=== PATIENT | male | born 1950 | race Caucasian/White ===

== ENCOUNTER 2018-02-04 10:17 | Emergency (ER) | payer OTHER ==
[~2018-02-04] VITALS: Ht 597.6 cm; Wt 84.0 kg
[2018-02-04 10:21] VITALS: BP 145/84
== END 2018-02-04 11:52 | disposition home or self-care (01) ==
LOC: ER 10:17
DX: K64.4 Residual hemorrhoidal skin tags (principal); K62.89 Other specified diseases of anus and rectum; Z86.73 Personal history of transient ischemic attack (TIA), and cerebral infarction without residual deficits
CPT/HCPCS: 99281